=== PATIENT | male | born 1955 | race Caucasian/White ===

== ENCOUNTER → 2016-08-26 | Outpatient (CLI) | payer OTHER | END | disposition home or self-care (01) | LOC: RAD 15:26 | DX: R05 Cough (principal); I10 Essential (primary) hypertension; R06.2 Wheezing; R06.02 Shortness of breath; F17.200 Nicotine dependence, unspecified, uncomplicated ==

== ENCOUNTER 2018-06-10 16:29 | Inpatient (IN) | payer OTHER ==
[~2018-06-10] VITALS: Ht 172.7 cm; Wt 92.1 kg
--- NOTE | ~2018-06-10 | PR ---
[place], [place] PROGRESS NOTE NAME: SARAH CASILLAS UNIT #: [id number] ROOM: 507 DOCTOR: KIMMY STEVENSON MD,MINDY BIRTHDATE: [birth year] DOS: 06/15/2018 SUBJECTIVE: The patient has been improving. Gradual reduction of the oxygen requirement, respiratory symptoms were improving progressively using the BiPAP at nighttime. This morning, sitting on the bed without acute distress this morning of assessment. OBJECTIVE: VITAL SIGNS: Normal temperature, respiratory rate 20, heart rate of 89, blood pressure 105/59. The pulse oxygen saturation on 3 liters nasal cannula 98% saturation. HEAD, EYES, EARS, NOSE, AND THROAT: Examination shows head was atraumatic. Eyes nonicterus. NECK: Supple. CARDIOVASCULAR SYSTEM: S1, S2 is audible. LUNGS: Without any wheezing or crackles at this time. Breaths are noted moderately decreased. ABDOMEN: Soft, nontender. Bowel sounds present. EXTREMITIES: No acute edema. IMPRESSION: The patient with progressive resolution of the acute on chronic hypercapnia hypoxic respiratory failure, exacerbation of chronic obstructive pulmonary disease, history of nicotine use. PLAN OF TREATMENT: After tobacco use. The patient could be considered for home discharge on oral medications, tapering prednisone and bronchodilators. Outpatient appointment was suggested to this patient. MINDY ONELA MD CM:PNTRANS [id number] MINDY STEVENSON MD 06/15/18 1156 interface
--- NOTE | ~2018-06-10 | PR ---
[place], [place] PROGRESS NOTE NAME: SARAH CASILLAS UNIT #: [id number] ROOM: 507 DOCTOR: MINDY AUGUSTE MD BIRTHDATE: [birth year] DOS: 06/12/2018 PULMONARY PROGRESS NOTE SUBJECTIVE: The patient has been comfortably sitting on the chair during this morning of assessment in the ICU. Use of BiPAP and using oxygen supplementation intermittently. Denies symptoms of chest pain. Coughing has been noted with a small amount of sputum expectoration. Shortness of breath and wheezing were noted somewhat decreased. There were no symptoms of chest pain. Tightness in the chest was noted improving. There were no symptoms of edema or pain of the lower extremity. Denies symptoms of hematuria, nausea, vomiting, diarrhea, headache, or diplopia. Remaining systems were reviewed, they were noted all negative. OBJECTIVE: VITAL SIGNS: Which have been recorded showed the temperature recorded as normal, respiratory rate 18, heart rate 80, blood pressure of 102/61 to 89/48. Pulse oxygen saturation with the patient on 5 liters was 93% saturation. HEENT: No acute change. Head was atraumatic. NECK: Supple. CARDIOVASCULAR: S1 and S2 audible. LUNGS: The patient was noted with lovx-qg-jbmftrbg expiratory wheezing without any crackles. ABDOMEN: Soft and nontender. EXTREMITIES: The patient without any acute edema. VISIBLE SKIN: No lesions or rashes. CENTRAL NERVOUS SYSTEM: The patient's cranial nerves 2-12 were intact. MUSCULOSKELETAL: Noted without any acute deformities. IMPRESSION: 1. Acute on chronic hypercapnic and hypoxemic respiratory failure. 2. Metabolic alkalosis. 3. Chronic hypercarbia. 4. Acute exacerbation of chronic obstructive pulmonary disease. 5. Essential hypertension. PLAN OF THERAPY: Continue BiPAP with oxygen supplementation intermittently. Dose of corticosteroids will be continued the same with no changes. Solu-Medrol dose could be decreased tomorrow morning based on further improvement in respiratory status. The patient could be transferred from the intensive care unit to the telemetry floor. Continued abstinence of tobacco use was advised. [place], [place] PROGRESS NOTE NAME: SARAH CASILLAS UNIT #: [id number] ROOM: 507 DOCTOR: MINDY AUGUSTE MD BIRTHDATE: [birth year] MINDY ONEAL MD CM:AGUS [id number] MINDY STEVENSON MD 06/13/18 0014 interface
--- NOTE | ~2018-06-10 | PR ---
[place], [place] PROGRESS NOTE NAME: SARAH CASILLAS UNIT #: [id number] ROOM: 507 DOCTOR: MINDY AUGUSTE MD BIRTHDATE: [birth year] DOS: 06/13/2018 PULMONARY PROGRESS NOTE SUBJECTIVE: The patient has been transferred to the medical floor. He has been reporting reduction in respiratory symptom. The patient with coughing, wheezing and shortness of breath, and coughing has been noted with some sputum expectoration. There were no symptoms of chest pain, fever or chills reported. OBJECTIVE: VITAL SIGNS: Normal temperature, respiratory rate 20, heart rate 84, blood pressure 118/64, pulse oxygen saturation recorded as 97% saturation on 4 liters nasal cannula. HEENT: Examination shows head was atraumatic. Eyes nonicterus. NECK: Supple. CARDIOVASCULAR: S1, S2 is audible. LUNGS: Mild expiratory wheezing, moderate decreased breath sounds bilaterally. ABDOMEN: Soft, nontender. Bowel sounds present. EXTREMITIES: Without any acute edema. LABORATORY DATA: BMP: BUN 29, creatinine was normal. CBC of this morning, WBC count 13.2, hemoglobin 11.6, hematocrit 34.8, platelet count was normal. IMPRESSION: 1. The patient with progressive improvement was noted with acute exacerbation of chronic obstructive pulmonary disease with obstructive wheezing and improving the overall respiratory status. 2. Ynqxf-gz-dpzarmo hypercapnic hypoxic respiratory failure, responding to treatment with the BiPAP, bronchodilators, oxygen and steroids. PLAN OF MANAGEMENT: The steroid dose will be decreased. Solu-Medrol 40 mg b.i.d. Ambulation was encouraged. The patient may be considered for home discharge if he does well with the oxygen requirement decreased in the next 24 hours to the home settings. [place], [place] PROGRESS NOTE NAME: SARAH CASILLAS UNIT #: [id number] ROOM: 507 DOCTOR: MINDY AUGUSTE MD BIRTHDATE: [birth year] MINDY ONEAL MD CM:PNTRANS [id number] MINDY STEVENSON MD 06/27/18 0904 interface
--- NOTE | ~2018-06-10 | CON ---
[place], [place] REPORT OF CONSULTATION NAME: SARAH CASILLAS UNIT #: [id number] ROOM: [facility] DOCTOR: KIMMY STEVENSON MD,MINDY BIRTHDATE: [birth year] DOS: 06/11/2018 PULMONARY CONSULTATION, EVALUATION, AND MANAGEMENT CONSULTATION REQUESTED BY: Hospitalist. REASON FOR CONSULTATION: For assessment for the respiratory failure. HISTORY OF PRESENT ILLNESS: This is a 62-year-old white male patient with known history of chronic hypoxic respiratory failure, using oxygen supplementation of 2 liters nasal cannula with history of end-stage COPD. The patient stated he has been getting progressive increased shortness of breath for the last few days and increasing his oxygen supplementation 4 liters nasal cannula. The patient developed symptoms of coughing with excessive wheezing as well. The cough has been noted, urizr-xl-hwmndkql amount of sputum expectoration at times. The patient's symptoms had noted progressively worsening in spite of increased oxygen supplementation and was admitted to the hospital. The patient has not been noted any symptoms of chest pain or any hemoptysis. The patient came into the hospital and currently admitted in the Intensive Care Unit for the medical management of respiratory failure management. The patient's oxygen saturation noted as 72% at rest on room air and then started on supplemental oxygen. The oxygen saturation improved to 90% in the Emergency Room. Currently, the patient has been stating reduction in respiratory symptoms since hospitalization. The symptom resolution noted incomplete. He has been also started on the BiPAP. The BiPAP setting has been changed to improve the ventilatory status. PAST MEDICAL HISTORY: The patient has: 1. End-stage COPD. 2. Chronic hypoxic respiratory failure, 2 liters of oxygen use at home. 3. Essential hypertension. 4. Nicotine dependence. HOME MEDICATIONS: Listed as aspirin, Zestoretic, multivitamin, and nebulized bronchodilators and oxygen. CURRENT MEDICATIONS: Noted as use of Zestoretic, lisinopril, Solu-Medrol 40 mg q.8 hours, albuterol sulfate every 4 hours, nicotine replacement patch, Levaquin antibiotic, and other p.r.n. medications administration. DRUG ALLERGIES: THE PATIENT IS ALLERGIC TO SULFA DRUGS. SOCIAL HISTORY: The patient stated that he lives at home. He denies any history of alcohol or illicit drug use. Tobacco use, started teenager, smoked up to 2 packs of cigarettes per day. Currently, smoking 4-5 cigarettes per day. The patient is . FAMILY HISTORY: The patient's father history was unknown. Mother at the age of 72 from complications of COPD. REVIEW OF SYSTEMS: [place], [place] REPORT OF CONSULTATION NAME: SARAH CASILLAS UNIT #: [id number] ROOM: [facility] DOCTOR: MINDY AUGUSTE MD BIRTHDATE: [birth year] CONSTITUTIONAL SYMPTOMS: Fatigue and tiredness still reported without any symptoms of fever or chills. EYES: Denies burning, redness, or tenderness. EARS, NOSE, AND THROAT SYMPTOMS: No sore throat, hoarseness, otalgia, postnasal drainage, or epistaxis. CARDIOVASCULAR SYSTEM: Denies anginal pain, edema, or pain of lower extremity. GASTROINTESTINAL SYMPTOMS: No dysphagia, nausea, vomiting, diarrhea, abdominal pain, abnormal weight loss, or hematochezia. GENITOURINARY SYMPTOMS: Denies urinary incontinence, hematuria, flank pain, or suprapubic pain. MUSCULOSKELETAL SYMPTOMS: No acute joint pain, redness, or tenderness. SKIN: No lesions or rashes. CENTRAL NERVOUS SYSTEM: No dizziness, headache, diplopia, or syncopal episode. Remaining systems were reviewed and they were noted all negative. PHYSICAL EXAMINATION: GENERAL: This is a 62-year-old white male, currently noted comfortable. The patient is in Intensive Care Unit, using oxygen supplementation by nasal cannula. Height of 5 feet 8 inches, weight of 208 pounds, and BMI of 30.8. The patient was not noted any distress. VITAL SIGNS: Normal temperature, respiratory rate of 22, heart rate of 170, and blood pressure of 164/88 noted on admission and at noon the patient's blood pressure was noted as 113/90, heart rate of 93, normal sinus rhythm; respiratory rate of 20, and normal temperature. Pulse oxygen saturation was noted on the 4 liters nasal cannula is 89% saturation with a Venturi mask and on the BiPAP was 98% saturation. HEENT: Examination shows moderate obesity. Head was atraumatic. Eyes nonicterus. NECK: Supple. CARDIOVASCULAR SYSTEM: S1, S2 is audible. LUNGS: Noted with diffuse expiratory wheezing in the lungs bilaterally with decreased breath sounds. ABDOMEN: Soft, nontender. EXTREMITIES: The patient noted without any acute edema. MUSCULOSKELETAL: The patient noted without any obvious deformities. VISIBLE SKIN: No lesions or rashes. CENTRAL NERVOUS SYSTEM: Cranial nerves 2-12 intact. No focal deficit. LABORATORY DATA: Reviewed for the patient for this consultation. Lactic acid is 1.7 on admission. CBC on admission, WBC count is 7.2, hemoglobin is 12.8, and platelet count was normal on 06/10/2018. CMP of the patient on 06/10/2018 on admission glucose is 120, normal BUN and creatinine, and CO2 of 34. PT and PTT yesterday were normal. The arterial blood gas, pH of 7.29, pCO2 of 60, pO2 of 86 on 40% oxygen, BiPAP settings of 14/8. The arterial blood gas that was completed this morning on 40% of BiPAP setting of 18/10, pH of 7.37, pCO2 of 53, and pO2 of 80.4. Troponin 3 sets in the last 24 hours normal. CMP this morning, normal BUN and creatinine, sodium of 132, and CO2 of 33. The culture of the sputum was pending. Gram stain this morning, moderate epithelial cells, moderate white blood cells, many gram-positive cocci in chains and clusters with few gram-negative bacilli. [place], [place] REPORT OF CONSULTATION NAME: SARAH CASILLAS UNIT #: [id number] ROOM: [facility] DOCTOR[facility] [birth year] IMAGING DATA: One view chest x-ray that was done on admission reviewed from the PACS images independently and review shows evidence of severe COPD changes and hyperinflation. It does not show any evidence of acute pulmonary infiltration with 1 view chest x-ray of 06/10/2018. IMPRESSION: 1. The patient who has been currently admitted to the hospital noted with end-stage chronic obstructive pulmonary disease with acute bronchitis. Active wheezing noted. The patient was noted also with acute on chronic hypercapnic hypoxic respiratory failure secondary to the above. 2. Metabolic alkalosis likely secondary to chronic hypercarbia, which has been known with end-stage chronic obstructive pulmonary disease. 3. Chronic nicotine dependence as well. 4. History of essential hypertension. 5. Moderate obesity as well. PLAN OF MANAGEMENT: The patient will be continued on current dose of Solu-Medrol 40 mg q.8 hours should suffice, albuterol sulfate for treatment of exacerbation of COPD management. Continue the BiPAP intermittently during the day today and continue at nighttime. Continue current antibiotic. Monitor cultures of the sputum. DVT prophylaxis. Nicotine replacement patches. Counseling about nicotine cessation was done at the bedside. Other treatment changes will be made based on progression of his illness. Thanks for allowing me to participate in the care of this patient. MINDY ONEAL MD CM:CONSTR:REPORT OF CONSULTATION 1633 06/12/18 0314 interface
--- NOTE | ~2018-06-10 | PR ---
[place], [place] PROGRESS NOTE NAME: SARAH CASILLAS UNIT #: [id number] ROOM: 507 DOCTOR: KIMMY STEVENSON MD,MINDY BIRTHDATE: [birth year] DOS: 06/14/2018 SUBJECTIVE: Comfortably resting on the bed, still noted symptoms of shortness of breath with exertion. Coughing with wheezing were resolving. There were no symptoms of chest pain. OBJECTIVE: VITAL SIGNS: This morning, normal temperature, respiratory rate 21, heart rate 72, blood pressure 105/55. Pulse oxygen saturation on 2 liters nasal cannula 94% saturation. HEENT: Head was atraumatic. Eyes nonicterus. NECK: Supple. CARDIOVASCULAR: S1, S2 is audible. LUNGS: Decreased breath sounds, scattered expiratory wheezing, no crackles. ABDOMEN: Soft and nontender. Bowel sounds present. EXTREMITIES: No acute change. IMPRESSION: Resolving acute exacerbation of chronic obstructive pulmonary disease with acute tracheobronchitis, resolving acute on chronic hypercapnic hypoxic respiratory failure. PLAN OF MANAGEMENT: Decrease Solu-Medrol 40 mg daily. Ambulation was encouraged with oxygen supplementation to maintain a pulse ox saturation 92% or greater. Additional treatment changes will be made based on the progression of the illness. MINDY ONEAL MD CM:PNTRANS [id number] MINDY STEVENSON MD 06/27/18 0906 interface
--- NOTE | ~2018-06-10 | EKG ---
[place], [place] ELECTROCARDIOGRAM REPORT NAME: SARAH CASILLAS UNIT #: [id number] ROOM: [facility] DOCTOR: KAY DRAFT REPORT BIRTHDATE: [birth year] [facility] Test Date: 2018-06-10 Test Time: 16:36:16 Pat Name: SARAH CASILLAS Department: Room: [facility] Gender: M [employer] Worker: : 1955 Requested By: MICH ZEPEDA Order Number: [id number] Reading MD: Rao Hunt MD Measurements Intervals Organ Rate: 116 P: 76 DC: 183 QRS: 65 QRSD: 81 T: 59 QT: 321 QTc: 446 Interpretive Statements Sinus tachycardia Right atrial enlargement Compared to ECG 04/28/2018 12:41:55 Atrial abnormality now present Sinus rhythm no longer present Left-axis deviation no longer present Electronically Signed On 06-10-2018 16:35:38 PST by Rao Hunt MD CM:EKGRPT:ELECTROCARDIOGRAM REPORT 1635 MICH WADE DRAFT REPORT MICH ZEPEDA DO
[~2018-06-10 16:29] MED LIST: ASPIRIN CHEWABL81 MG PO; LEVAQUIN500 M2 PO; MUCINEX ER600 MG PO; PREDNISONE10 MG PO; ZESTORETIC 20-1 EACH PO
[2018-06-10 16:34] VITALS: BP 164/88
[2018-06-10] MEDS ORDERED: MULTIVITAMINS1 EAC5 PO (16:42)
[2018-06-10 17:09] LABS: BASO # 0.1 10*3/uL (0.0-0.1); BASO % 1.1 % (0.0-1.0); EOS # 0.7 10*3/uL (0.0-0.4); EOS % 9.5 % (1.0-4.0); HEMATOCRIT 40.4 % (42.0-52.0); HEMOGLOBIN 12.8 g/dl (14.0-18.0); LYMPH # 1.5 10*3/uL (1.3-4.4); MEAN CELL VOLUME 97.1 fl (80.0-94.0); MEAN CORPUSCULAR HGB 30.8 pg (27.0-31.0); MEAN CORPUSCULAR HGB CONC 31.7 g/dl (33.0-37.0); MEAN PLATELET VOLUME 9.5 fl (9.6-12.3); MONO # 0.6 10*3/uL (0.1-1.0); MONO % 7.6 % (3.0-9.0); NEUT # 4.4 10*3/uL (2.3-7.9); NEUT % 60.4 % (47.0-73.0); PLATELET COUNT AUTOMATED 309 10*3/uL (130-400); RED BLOOD COUNT 4.16 10*6/uL (4.50-5.90); RED CELL DISTRI WIDTH 12.9 % (0-14.5); WHITE BLOOD COUNT 7.2 10*3/uL (4.8-10.8)
[2018-06-10 17:19] LABS: ALBUMIN 3.5 gm/dl (3.1-4.5); ALKALINE PHOSPHATASE 76 U/L (45-117); BUN 13 mg/dl (7-24); CHLORIDE 95 mmol/L (98-107); CREATININE 0.87 mg/dL (0.70-1.30); LIPASE 74 U/L (73-393); POTASSIUM 4.5 mmol/L (3.5-5.1); SGOT/AST 19 IU/L (3-35); SGPT/ALT 22 U/L (12-78); SODIUM 136 mmol/L (136-145); TOTAL PROTEIN 7.4 gm/dL (6.4-8.2)
[2018-06-10 17:20] LABS: TROPONIN I < 0.015 ng/ml (<0.045)
[2018-06-10 17:23] LABS: ACT PARTIAL THROMBO TIME 23.6 SECONDS (20.8-31.5)
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
[2018-06-10 17:48] VITALS: BP 138/79
[2018-06-10 18:40] VITALS: BP 102/60
--- NOTE | 2018-06-10 18:40 | NUR ---
A 62, admitted to ICCU, under the services of ALDAIR Burgos DO with a diagnosis of RESP. FAILURE. Chief complaint is SOB SINCE NOON TODAY. Patient arrived via stretcher from ER. Monitor applied. Initial assessment completed. Vital signs taken and recorded. ALDAIR BURGOS DO notified of admission to the unit. Orders received. See assessment for past medical history, medications and allergies. Patient and/or family oriented to unit. [facility] ICCU visitation policy reviewed. Clothing/patient valuable form completed. CAMPA
[2018-06-10 19:34] LABS: ABG HCO3 32.3 mmol/l (22-26); ABG O2 SATURATION 97.1 % (95-97); ARTERIAL BLOOD GAS PCO2 68.3 mmHg (35-45); ARTERIAL BLOOD GAS PH 7.293 (7.35-7.45); ARTERIAL BLOOD GAS PO2 86.7 mmHg (80-90)
--- NOTE | 2018-06-10 19:56 | NUR ---
24 HR chart check completed.
--- NOTE | 2018-06-10 19:56 | NUR ---
24 HR chart check completed.
--- NOTE | 2018-06-10 21:43 | NUR ---
PT SOMEWHAT ANXIOUS. REASSURED AND CALMED DOWN. NOW IS RESTING ON BIPAP.
[2018-06-11 05:51] LABS: ALKALINE PHOSPHATASE 66 U/L (45-117); BUN 18 mg/dl (7-24); CHLORIDE 96 mmol/L (98-107); CREATININE 0.95 mg/dL (0.70-1.30); PHOSPHOROUS 3.3 mg/dL (2.5-4.9); SGOT/AST 18 IU/L (3-35); SGPT/ALT 20 U/L (12-78); SODIUM 133 mmol/L (136-145); TOTAL PROTEIN 6.6 gm/dL (6.4-8.2)
[2018-06-11 06:11] LABS: BASO % 0.2 % (0.0-1.0); HEMATOCRIT 37.4 % (42.0-52.0); HEMOGLOBIN 12.1 g/dl (14.0-18.0); LYMPH # 0.5 10*3/uL (1.3-4.4); LYMPH % 10.9 % (27.0-41.0); MEAN CELL VOLUME 96.9 fl (80.0-94.0); MEAN CORPUSCULAR HGB 31.3 pg (27.0-31.0); MEAN CORPUSCULAR HGB CONC 32.4 g/dl (33.0-37.0); MEAN PLATELET VOLUME 9.7 fl (9.6-12.3); MONO # 0.1 10*3/uL (0.1-1.0); MONO % 1.4 % (3.0-9.0); NEUT # 3.8 10*3/uL (2.3-7.9); NEUT % 86.8 % (47.0-73.0); PLATELET COUNT AUTOMATED 263 10*3/uL (130-400); RED BLOOD COUNT 3.86 10*6/uL (4.50-5.90); WHITE BLOOD COUNT 4.4 10*3/uL (4.8-10.8)
[2018-06-11 07:44] LABS: ABG BASE EXCESS 5.1 mmol/L (-2.0-2.0); ABG O2 SATURATION 96.1 % (95-97); ARTERIAL BLOOD GAS PCO2 53.6 mmHg (35-45); ARTERIAL BLOOD GAS PH 7.379 (7.35-7.45); ARTERIAL BLOOD GAS PO2 80.4 mmHg (80-90)
[2018-06-11 08:00] VITALS: BP 124/62
[2018-06-11 12:00] VITALS: BP 113/90
[2018-06-11 16:00] VITALS: BP 95/27
[2018-06-11 20:00] VITALS: BP 102/72
--- NOTE | 2018-06-11 20:23 | NUR ---
1946 RESTING IN BED WATCHING TV. ALERT AND PLEASANT. PULSE OX 96% ON HIGH FLOW 02 VIA NC. IF FLUIDS CONT. NO DISTRESS NOTED. NO C/O'S VOICED.
--- NOTE | 2018-06-11 22:16 | NUR ---
PT SLEEPING. HIGH FLOW O2 INTACT VIA NC. PULSE OX OX IS 84%. RESPIRATORY THERAPY HERE TO PLACE PT ON BIPAP.
[2018-06-12] VITALS (7 sets, daily range): BP systolic 89–107; BP diastolic 38–70
--- NOTE | 2018-06-12 00:19 | NUR ---
RESTING IN BED WITH EYES CLOSED. APPEARS TO BE SLEEPING. BIPAP INTACT. PULSE OX 98%,.
--- NOTE | 2018-06-12 02:30 | NUR ---
0200 BIPAP OFF PER PT REQUEST. STATES " I CAN'T TAKE IT ANYMORE." HIGHFLOW 02 VIA [employer] RE-[employer].
[2018-06-12 05:29] LABS: HEMATOCRIT 34.8 % (42.0-52.0); HEMOGLOBIN 11.3 g/dl (14.0-18.0); MEAN CELL VOLUME 95.9 fl (80.0-94.0); MEAN CORPUSCULAR HGB 31.1 pg (27.0-31.0); MEAN CORPUSCULAR HGB CONC 32.5 g/dl (33.0-37.0); MEAN PLATELET VOLUME 9.8 fl (9.6-12.3); PLATELET COUNT AUTOMATED 250 10*3/uL (130-400); RED BLOOD COUNT 3.63 10*6/uL (4.50-5.90); RED CELL DISTRI WIDTH 13.3 % (0-14.5); WHITE BLOOD COUNT 13.6 10*3/uL (4.8-10.8)
[2018-06-12 05:47] LABS: BUN 26 mg/dl (7-24); CHLORIDE 101 mmol/L (98-107); CREATININE 0.92 mg/dL (0.70-1.30); POTASSIUM 4.9 mmol/L (3.5-5.1); SODIUM 138 mmol/L (136-145)
--- NOTE | 2018-06-12 06:15 | NUR ---
RESTING IN BED WITH EYES CLOSED. REMAINS SLEEPING WIHTOUT DISTRESS. RESPIRATIONS EASY. PULSE OX 100% ON HIGH FLOW 02. IV FLUIDS CONT. CONDITION GUARDED.
[2018-06-12 06:32] LABS: PLATELET SUFFICIENCY NORMAL (NORMAL); TOTAL CELLS COUNTED 100 #CELLS
--- NOTE | 2018-06-12 10:39 | NUR ---
IVF'S DC'D PER DR FENG.
--- NOTE | 2018-06-12 11:43 | NUR ---
DR RODRIGUEZ MADE AWARE OF PT'S BP OF 89/48 AND THAT I HELD ZESTRIL TODAY.
--- NOTE | 2018-06-12 14:35 | NUR ---
PHYSICAL THERAPY PT EVAL COMPLETED IN ICCU TODAY; FULL EVALUATION TO FOLLOW. RECOMMEND PT WHILE HERE TO ADDRESS DECREASED STRENGTH, ENDURANCE, BALANCE AND THUS FUNCTIONAL MOBILITY STATUS. PT EVAL IS MODERATE COMPLEXITY BASED ON CHART REVIEW, TEST RESULTS AND EVALUATION: [id number]. D/C REC: RETURN HOME WITH HOME PT SERVICES. THANK YOU FOR REFERRAL JEFRFY ALONSO PT
--- NOTE | 2018-06-12 19:30 | NUR ---
PATIENT AWAKE IN BED AT THIS TIME. BREATHING TX COMPLETE. REPLACED TREATMENT MASK WITH NASAL CANNULA AT 4L. PATIENT DENIES ANY SOB, PAIN, OR OTHER GENERALIZED DISCOMFORT. WILL MONITOR. CALL LIGHT LEFT IN REACH.
--- NOTE | 2018-06-12 23:50 | NUR ---
PT PLACED ON BIPAP
[2018-06-13] VITALS: BP 114/65
--- NOTE | 2018-06-13 00:58 | NUR ---
CONTINUOUS PULSE OX APPLIED TO MONITOR WHILE BIPAP IN USE. POX 98% AT PRESENT TIME. WILL MONITOR. CALL LIGHT LEFT IN REACH.
--- NOTE | 2018-06-13 02:44 | NUR ---
PT OFF BIPAP
[2018-06-13 06:26] LABS: HEMATOCRIT 34.8 % (42.0-52.0); HEMOGLOBIN 11.6 g/dl (14.0-18.0); MEAN CELL VOLUME 95.1 fl (80.0-94.0); MEAN CORPUSCULAR HGB 31.7 pg (27.0-31.0); MEAN CORPUSCULAR HGB CONC 33.3 g/dl (33.0-37.0); MEAN PLATELET VOLUME 9.3 fl (9.6-12.3); PLATELET COUNT AUTOMATED 248 10*3/uL (130-400); RED BLOOD COUNT 3.66 10*6/uL (4.50-5.90); RED CELL DISTRI WIDTH 13.3 % (0-14.5); WHITE BLOOD COUNT 13.2 10*3/uL (4.8-10.8)
[2018-06-13 06:41] LABS: BUN 29 mg/dl (7-24); CHLORIDE 102 mmol/L (98-107); CREATININE 0.92 mg/dL (0.70-1.30); POTASSIUM 4.8 mmol/L (3.5-5.1); SODIUM 140 mmol/L (136-145)
[2018-06-13 06:47] LABS: PLATELET SUFFICIENCY NORMAL (NORMAL); TOTAL CELLS COUNTED 100 #CELLS
--- NOTE | 2018-06-13 07:47 | NUR ---
VITALS STABLE. A&OX3, SEAMUS, EQUAL VENDING STAND SUPERVISOR, HEART SOUNDS NORMAL, LUNGS DIMINSHED, NON-PRODUCTIVE COUGH, BSX4, ABD NONTENDER, NONDISTENDED, SKIN PINK, WARM AND DRY, PITTING EDEMA +1 BILATERAL LOWER EXTREMETIES, POSITIVE PEDIAL PULSES, NO COMPLAINTS OF PAIN AT THIS TIME. WILL CONTINUE TO ASSESS. [facility]
[2018-06-13 08:00] VITALS: BP 118/64
--- NOTE | 2018-06-13 09:17 | NUR ---
PHYSICAL THERAPY Patient presented to therapy in supine with 4 liters of spO2 and no assistive device with report of feeling much better and no complaints. Patient agrees to therapy session. Patient was identified by name and . Patient performed supine to sitting at EOB transfer with SBA. Patient transferred STS with SBA. Patient ambulated around entire 5 th floor with no assistive device and Close Supervision for 375' x 1 with 4 liters of spO2. Patient sat on EOB and performed bilateral LE ther ex x 15 reps each in all planes of movement in order to improve patient's functional mobility. Patient was left in sitting at EOB with 4 liters of spO2 attached to wall outlet, call light within reach, and tray table within reach. Patient was 1:1 with this MARINE EQUIPMENT ENGINEER for 20 minutes total. Patient is recommended for home with PT HH upon discharge. POPPY SOTO MARINE EQUIPMENT ENGINEER
--- NOTE | 2018-06-13 10:00 | NUR ---
TYLENOL EFFECTIVE, PT STATES PAIN IS "0 OUT OF 10" ON PAIN SCALE. WILL CONTINUE TO MONITOR. ROSARIO PACHECOCC
--- NOTE | 2018-06-13 11:08 | NUR ---
PATIENT IS VERY TALKATIVE. DISPLAYS NO S/S OF DISTRESS, CALL LIGHT WITHIN REACH. DENIES ANY DISCOMFORTS. RESP EASY. CAN SAY SOME INAPPROPRIATE COMMENTS AT TIMES. EASILY REDIRECTED.
--- NOTE | 2018-06-13 11:50 | NUR ---
Box Sealing Machine Operator in to talk to patient. Patient states lives at HOME with AONE. There are 3 steps in the home. Physician: MARIEL OLMSTEAD Pharmacy: [facility] Home health services: NONE Patient's level of ADLs: INDEPENDENT Patient has working utilities: YES DME: NONE Follow-up physician's appointment after d/c: WILL BE MADE BY HOSPITALIST NURSE DIRECTOR Does patient want to access PORTAL?: NO Discharge plan PT STATES HE LIVES HOME ALONE AND IS INDEPENDENT IN CARE. DENIES ANY HOME NEEDS ON DISCHARGE. WILL CONTINUE TO FOLLOW.. SPENCER VIGIL
[2018-06-13 12:00] VITALS: BP 120/62
--- NOTE | 2018-06-13 12:00 | NUR ---
VITALS STABLE. A&OX3, SEAMUS, EQUAL COAL SCREENER, HEART SOUNDS NORMAL, LUNGS DIMINISHED BILATERALLY, NON-PRODUCTIVE COUGH, BSX4, NONTENDER, SLIGHTLY DISTENDED, SKIN PINK, WARM AND DRY, CAP REFILL <3 SECONDS, PITTING EDMEA +1 BILATERAL LOWER LEGS, TRACE EDEMA IN FEET BILATERALLY, POSITIVE PEDIAL PULSES. NO COMPLAINTS OF PAIN AT THIS TIME. WILL CONTINUE TO ASSESS. ROSARIO PACHECOCC
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
--- NOTE | 2018-06-13 13:55 | NUR ---
PHYSICAL THERAPY Patient presented to therapy in supine on 4 liters of spO2 and no other complaints. Patient agrees to therapy session. Patient was identified by name and . Patient transferred supine to sitting at EOB SBA. Patient transferred STS with SBA. Patient ambulated with no assistive device and 4 liters of spO2 for 375' x 1 around entire 5th floor.
--- NOTE | 2018-06-13 15:12 | NUR ---
Occupational Therapy evaluation offered this date however patient reports he has no need. Patient is able to ambulate in and out of his room on 3 LPM O2. He performs his own self care including bathing, dressing, grooming and toileting at an independent level. Patient reports no pain. Patient educated in pacing and that OT could educate in energy conservation/work simplification techniques. Patient is not interested at this time. Discharge OT referral per patient's request. Isela Ulrich OTR/L
[2018-06-13 16:00] VITALS: BP 90/47
[2018-06-13 20:00] VITALS: BP 99/53
--- NOTE | 2018-06-13 23:23 | NUR ---
PATIENT REFUSING BIPAP
--- NOTE | 2018-06-13 23:49 | NUR ---
PT REFUSING TO WEAR BIPAP AT THIS TIME.
[2018-06-14] VITALS: BP 103/42
--- NOTE | 2018-06-14 04:05 | NUR ---
PATIENT ASLEEP IN BED AT THIS TIME. O2 IN USE VIA 3L NC PATIENT REFUSED TO WEAR BIPAP AFTER MULTIPLE ATTEMPTS BY RESPIRATORY THERAPY/NURSING TO CONVINCE PT TO WEAR IT. RESPIRATIONS EASY. NO S/S OF DISTRESS NOTED. WILL MONITOR. CALL LIGHT LEFT IN REACH.
[2018-06-14 08:00] VITALS: BP 105/55
[2018-06-14 08:11] LABS: BASO % 0.1 % (0.0-1.0); HEMATOCRIT 37.7 % (42.0-52.0); HEMOGLOBIN 12.4 g/dl (14.0-18.0); LYMPH % 9.2 % (27.0-41.0); MEAN CORPUSCULAR HGB 31.2 pg (27.0-31.0); MEAN CORPUSCULAR HGB CONC 32.9 g/dl (33.0-37.0); MEAN PLATELET VOLUME 9.5 fl (9.6-12.3); MONO # 0.4 10*3/uL (0.1-1.0); MONO % 3.1 % (3.0-9.0); NEUT # 9.7 10*3/uL (2.3-7.9); NEUT % 86.7 % (47.0-73.0); PLATELET COUNT AUTOMATED 248 10*3/uL (130-400); RED BLOOD COUNT 3.97 10*6/uL (4.50-5.90); RED CELL DISTRI WIDTH 13.5 % (0-14.5); WHITE BLOOD COUNT 11.2 10*3/uL (4.8-10.8)
[2018-06-14 08:35] LABS: BUN 28 mg/dl (7-24); CHLORIDE 99 mmol/L (98-107); CREATININE 0.86 mg/dL (0.70-1.30); POTASSIUM 4.3 mmol/L (3.5-5.1); SODIUM 135 mmol/L (136-145)
[2018-06-14 12:00] VITALS: BP 104/61
--- NOTE | 2018-06-14 14:58 | NUR ---
PHYSICAL THERAPY Patient presented to therapy in supine with 2 liters of spO2 VIA NASAL CANULA. Patient reports feeling better overall and having no pain anywhere. Patient agrees to therapy session. Patient was identified by name and . Patient performed all transfers with MOD I. Patient ambulated 500' x 1 with 2 liters of spO2 and Close Supervision. Patient had no LOB or significant SOB during gait. Patient transferred back to supine in bed with MOD I. Patient was left in supine in bed with head of bed elevated, call ight within reach, and tray table near patient. Patient connected to wall outlet with 2 liters of spO2 via nasal canula. Patient was 1:1 with this SHADER AND TONER for 15 minutes total. POPPY SOTO SHADER [employer] TONER
[2018-06-14 16:00] VITALS: BP 96/54
[2018-06-14 20:00] VITALS: BP 113/65; BP 90/44
[2018-06-15] VITALS: BP 105/59
[2018-06-15 07:15] LABS: BASO % 0.3 % (0.0-1.0); EOS # 0.2 10*3/uL (0.0-0.4); EOS % 1.9 % (1.0-4.0); HEMATOCRIT 38.4 % (42.0-52.0); HEMOGLOBIN 12.2 g/dl (14.0-18.0); LYMPH # 3.6 10*3/uL (1.3-4.4); LYMPH % 36.2 % (27.0-41.0); MEAN CELL VOLUME 96.5 fl (80.0-94.0); MEAN CORPUSCULAR HGB 30.7 pg (27.0-31.0); MEAN CORPUSCULAR HGB CONC 31.8 g/dl (33.0-37.0); MEAN PLATELET VOLUME 9.4 fl (9.6-12.3); MONO # 0.6 10*3/uL (0.1-1.0); MONO % 6.4 % (3.0-9.0); NEUT # 5.3 10*3/uL (2.3-7.9); NEUT % 53.3 % (47.0-73.0); PLATELET COUNT AUTOMATED 259 10*3/uL (130-400); RED BLOOD COUNT 3.98 10*6/uL (4.50-5.90); RED CELL DISTRI WIDTH 13.6 % (0-14.5); WHITE BLOOD COUNT 9.9 10*3/uL (4.8-10.8)
[2018-06-15 07:46] LABS: BUN 29 mg/dl (7-24); CHLORIDE 99 mmol/L (98-107); CREATININE 1.02 mg/dL (0.70-1.30); POTASSIUM 4.4 mmol/L (3.5-5.1); SODIUM 136 mmol/L (136-145)
--- NOTE | 2018-06-15 11:03 | NUR ---
PT DID NOT WANT DISCHARGE PHOTOS OF HIS SCROTUM. HE STATED "I DON'T REALLY FIND IT NECESSARY". PATIENTS MODESTY WAS PRESERVED PER HIS REQUEST.
[2018-06-15 12:00] VITALS: BP 115/69
[2018-06-15] MEDS ORDERED: MUCINEX1200 M1 PO (13:26)
[2018-06-15] MEDS ORDERED: NICODERM CQ1 EAC2 T (13:26)
[2018-06-15] MEDS ORDERED: LEVAQUIN750 M1 PO (13:26)
[2018-06-15] MEDS ORDERED: PREDNISONE10 MG PO (13:26)
--- NOTE | 2018-06-15 13:31 | NUR ---
PT CONTINUES TO DENY HOME NEEDS ON DISCHARGE.
--- NOTE | 2018-06-15 14:26 | NUR ---
RT, Stephanie Antonio stated she called [facility] and [facility] will be bringing an oxygen tank in for this patient to transport home with.
--- NOTE | 2018-06-15 14:47 | NUR ---
AWAITING NANI TO BRING O2 TANK DUE TO PATIENT HAD ARRIVED BY AMBULANCE AND DOES NOT HAVE ANYONE TO COME GET HIM AND WILL BE TAKING A CAB HOME.
--- NOTE | 2018-06-15 15:40 | NUR ---
PT DISCHARGED AT THIS TIME AFTER NANI BROUGHT HIM A PORTABLE OXYGEN TANK. VERBALIZED UNDERSTANDING OF DISCHARGE INSTRUCTIONS. IV REMOVED AND PRESSURE DRESSING APPLIED.
--- NOTE | 2018-06-16 07:55 | NUR ---
PHYSICAL THERAPY CO-SIGN I approve of the Phyical Therapy notes written above. JERSEY ROWE PT
[2018-07-31] MEDS ORDERED: NICODERM CQ1 EACH T (08:49)
[2018-08-03] MEDS ORDERED: MUCINEX ER600 MG PO (11:17)
[2018-08-03] MEDS ORDERED: ZITHROMAX250 MG PO (11:17)
[2018-08-03] MEDS ORDERED: PREDNISONE10 MG PO (11:17)
== END 2018-06-15 15:40 | disposition home or self-care (01) | DRG 871 ==
LOC: ED 16:29 → 5E 17:36 → EDHOLD 17:36 → ICCU 17:48 → 5E 06-12 17:36
PROVIDERS: Emergency Medicine; Internal Medicine; Internal Medicine Critical Care Medicine; Internal Medicine Nephrology; ADMIT Internal Medicine
PROC: 5A09357 Assistance with Respiratory Ventilation, Less than 24 Consecutive Hours, Continuous Positive Airway Pressure (ICD-10-PCS; principal; 2018-06-10)
PROC: 5A09357 Assistance with Respiratory Ventilation, Less than 24 Consecutive Hours, Continuous Positive Airway Pressure (ICD-10-PCS; 2018-06-11)
DX: A41.9 Sepsis, unspecified organism (principal); J18.9 Pneumonia, unspecified organism; J96.21 Acute and chronic respiratory failure with hypoxia; J96.22 Acute and chronic respiratory failure with hypercapnia; J44.1 Chronic obstructive pulmonary disease with (acute) exacerbation; J44.0 Chronic obstructive pulmonary disease with (acute) lower respiratory infection; E87.3 Alkalosis; E83.41 Hypermagnesemia; E87.8 Other disorders of electrolyte and fluid balance, not elsewhere classified; I10 Essential (primary) hypertension; F17.200 Nicotine dependence, unspecified, uncomplicated; R65.20 Severe sepsis without septic shock; D53.8 Other specified nutritional anemias; J20.9 Acute bronchitis, unspecified; E66.01 Morbid (severe) obesity due to excess calories; Z71.6 Tobacco abuse counseling; Z99.81 Dependence on supplemental oxygen; Z83.6 Family history of other diseases of the respiratory system; Z88.2 Allergy status to sulfonamides; Z68.30 Body mass index [BMI] 30.0-30.9, adult

== ENCOUNTER 2018-07-01 10:54 | Emergency (ER) | payer OTHER ==
[~2018-07-01] VITALS: Ht 172.7 cm; Wt 97.1 kg
--- NOTE | ~2018-07-01 | EKG ---
[place], [place] ELECTROCARDIOGRAM REPORT NAME: SARAH CASILLAS UNIT #: [id number] ROOM: DOCTOR: EPIPHANY DRAFT REPORT BIRTHDATE: [birth year] [facility] Test Date: 2018-07-01 Test Time: 11:01:39 Pat Name: SARAH CASILLAS Department: Room: Gender: Manager Drug Safety: Rosalinda Padron : 1955 Requested By: YANG LEIJA Order Number: [id number] Reading MD: Rao Hunt MD Measurements Intervals [place] Rate: 96 P: 79 GA: 160 QRS: 70 QRSD: 78 T: 53 QT: 338 QTc: 428 Interpretive Statements Sinus rhythm LAE, consider biatrial enlargement Abnormal R-wave progression, late transition Compared to ECG 06/10/2018 16:36:16 Sinus tachycardia no longer present Electronically Signed On 07-01-2018 19:36:30 PST by Rao Hunt MD CM:EKGRPT:ELECTROCARDIOGRAM REPORT [id number] YANG VILLANUEVA DRAFT REPORT YANG LEIJA M.D.
[~2018-07-01 10:54] MED LIST changes: +LEVAQUIN750 M1 PO; +MUCINEX1200 M1 PO; +MULTIVITAMINS1 EAC5 PO; +NICODERM CQ1 EAC2 T
[2018-07-01 11:13] LABS: BASO # 0.1 10*3/uL (0.0-0.1); BASO % 0.7 % (0.0-1.0); EOS # 0.6 10*3/uL (0.0-0.4); EOS % 8.8 % (1.0-4.0); HEMOGLOBIN 12.4 g/dl (14.0-18.0); LYMPH # 1.1 10*3/uL (1.3-4.4); LYMPH % 15.8 % (27.0-41.0); MEAN CELL VOLUME 96.9 fl (80.0-94.0); MEAN CORPUSCULAR HGB 31.6 pg (27.0-31.0); MEAN CORPUSCULAR HGB CONC 32.6 g/dl (33.0-37.0); MONO # 0.5 10*3/uL (0.1-1.0); MONO % 7.6 % (3.0-9.0); NEUT # 4.7 10*3/uL (2.3-7.9); NEUT % 66.8 % (47.0-73.0); PLATELET COUNT AUTOMATED 210 10*3/uL (130-400); RED BLOOD COUNT 3.92 10*6/uL (4.50-5.90); RED CELL DISTRI WIDTH 15.2 % (0-14.5)
[2018-07-01 11:30] LABS: ALBUMIN 3.4 gm/dl (3.1-4.5); ALKALINE PHOSPHATASE 62 U/L (45-117); BUN 25 mg/dl (7-24); CHLORIDE 96 mmol/L (98-107); CREATININE 0.86 mg/dL (0.70-1.30); POTASSIUM 4.2 mmol/L (3.5-5.1); SGOT/AST 19 IU/L (3-35); SGPT/ALT 41 U/L (12-78); SODIUM 135 mmol/L (136-145); TOTAL PROTEIN 6.9 gm/dL (6.4-8.2)
[2018-07-01 11:39] LABS: TROPONIN I < 0.015 ng/ml (<0.045)
[2018-07-01] MEDS ORDERED: PREDNISONE20 M1 PO (14:46)
[2018-07-01] MEDS ORDERED: VIBRAMYCIN100 MG PO (14:46)
[2018-07-31] MEDS ORDERED: NICODERM CQ1 EACH T (08:49)
[2018-08-03] MEDS ORDERED: MUCINEX ER600 MG PO (11:17)
[2018-08-03] MEDS ORDERED: ZITHROMAX250 MG PO (11:17)
[2018-08-03] MEDS ORDERED: PREDNISONE10 MG PO (11:17)
== END 2018-07-01 14:44 | disposition home or self-care (01) ==
LOC: ED 10:54
PROVIDERS: Emergency Medicine
DX: J44.1 Chronic obstructive pulmonary disease with (acute) exacerbation (principal); I11.0 Hypertensive heart disease with heart failure; I50.9 Heart failure, unspecified; F17.210 Nicotine dependence, cigarettes, uncomplicated; Z88.2 Allergy status to sulfonamides; Z79.899 Other long term (current) drug therapy; Z79.82 Long term (current) use of aspirin

== ENCOUNTER 2024-04-02 01:28 | Inpatient (IN) | payer MEDICARE, OTHER ==
[2024-04-02] VITALS (10 sets, daily range): BP systolic 106–149; BP diastolic 42–75
[~2024-04-02] VITALS: Ht 170.1 cm; Wt 140.4 kg
[~2024-04-02 01:28] MED LIST changes: +NICODERM CQ1 EACH T; +PREDNISONE20 M1 PO; +VIBRAMYCIN100 MG PO; +ZITHROMAX250 MG PO
[2024-04-02] MEDS ORDERED: Albuterol Sulf/Ipratropium 3 ML VIAL NEB ONE (01:45)
[2024-04-02] MEDS ORDERED: methylPREDNISolone sod succ 125 MG VIAL IV ONE (01:45)
[2024-04-02] MEDS ORDERED: FLOMAX0.4 MG PO (02:02)
[2024-04-02] MEDS ORDERED: LASIX40 MG PO (02:02)
[2024-04-02] MEDS ORDERED: VITAMIN D350 MC2 PO (02:03)
[2024-04-02] MEDS ORDERED: BREZTRI AEROS10.7 GM INH (02:04)
[2024-04-02 02:11] LABS: BASO % 0.4 % (0.0-1.0); EOS # 0.2 10*3/uL (0.0-0.4); EOS % 1.6 % (1.0-4.0); HEMATOCRIT 28.6 % (42.0-52.0); MEAN CELL VOLUME 97.3 fl (80.0-94.0); MEAN CORPUSCULAR HGB 28.2 pg (27.0-31.0); MONO # 0.5 10*3/uL (0.1-1.0); MONO % 5.6 % (3.0-9.0); NEUT # 7.5 10*3/uL (2.3-7.9); NEUT % 81.6 % (47.0-73.0); PLATELET COUNT AUTOMATED 247 10*3/uL (130-400); RED BLOOD COUNT 2.94 10*6/uL (4.50-5.90); RED CELL DISTRI WIDTH 14.6 % (0-14.5); WHITE BLOOD COUNT 9.2 10*3/uL (4.8-10.8)
[2024-04-02 02:30] LABS: BUN 35 mg/dl (9-23); CHLORIDE 96 mmol/L (98-107); POTASSIUM 4.4 mmol/L (3.4-5.1)
[2024-04-02] MEDS ORDERED: AZITHROMYCIN 250 ML IV ONE (04:00)
[2024-04-02] MEDS ORDERED: Ceftriaxone Sodium 1 GM/10 ML SYR IV ONE (04:00)
[2024-04-02] MEDS ORDERED: Ondansetron Hydrochloride 4 MG/2 ML VIAL IV PRN (05:50)
[2024-04-02] MEDS ORDERED: ACETAMINOPHEN 650 MG SUPP R PRN (05:50)
[2024-04-02] MEDS ORDERED: Magnesium Hydroxide 30 ML UDC PO PRN (05:50)
[2024-04-02] MEDS ORDERED: BISACODYL 5 MG TAB PO PRN (05:50)
[2024-04-02] MEDS ORDERED: BISACODYL 10 MG SUPP R PRN (05:50)
[2024-04-02] MEDS ORDERED: ACETAMINOPHEN 325 MG TAB PO PRN (05:50)
[2024-04-02] MEDS ORDERED: Albuterol Sulf/Ipratropium 3 ML VIAL NEB SCH (06:00)
[2024-04-02] MEDS ORDERED: GUAIFENESIN 600 MG TAB ER PO SCH (10:00)
[2024-04-02] MEDS ORDERED: Enoxaparin Sodium 40 MG/0.4 ML SYR SC SCH (10:00)
[2024-04-02] MEDS ORDERED: methylPREDNISolone sod succ 40 MG VIAL IV SCH (10:00)
[2024-04-03] MEDS ORDERED: Ceftriaxone Sodium 1 GM in SYRINGE INFUSION 10 ML IV SCH ×2 (06:00→08:00)
[2024-04-03 06:41] LABS: HEMATOCRIT 29.1 % (42.0-52.0); MEAN CELL VOLUME 94.5 fl (80.0-94.0); MEAN CORPUSCULAR HGB 28.6 pg (27.0-31.0); MEAN CORPUSCULAR HGB CONC 30.2 g/dl (33.0-37.0); MEAN PLATELET VOLUME 9.5 fl (9.6-12.3); PLATELET COUNT AUTOMATED 255 10*3/uL (130-400); RED BLOOD COUNT 3.08 10*6/uL (4.50-5.90); RED CELL DISTRI WIDTH 14.7 % (0-14.5); WHITE BLOOD COUNT 7.9 10*3/uL (4.8-10.8)
[2024-04-03 06:48] LABS: MANUAL DIFF REFLEX YES
[2024-04-03 07:05] LABS: ALKALINE PHOSPHATASE 45 U/L (46-116); BUN 41 mg/dl (9-23); CHLORIDE 96 mmol/L (98-107); CHOLESTEROL 134 mg/dL (<200); LDL CHOLESTEROL 68 mg/dL (9-159); POTASSIUM 4.7 mmol/L (3.4-5.1); SGPT/ALT 17 U/L (5-49); TOTAL PROTEIN 6.8 gm/dL (6.0-8.0); TRIGLYCERIDES 71 mg/dl (<150)
[2024-04-03 07:21] LABS: POLYCHROMASIA SLIGHT; TOTAL CELLS COUNTED 100 #CELLS
[2024-04-03 07:22] LABS: OVALOCYTES FEW; PLATELET SUFFICIENCY NORMAL (NORMAL)
[2024-04-03 07:27] LABS: VITAMIN D, 25-HYDROXY 43.4 ng/mL (30-100)
[2024-04-03 08:00] VITALS: BP 144/65
[2024-04-03] MEDS ORDERED: AZITHROMYCIN 250 MG TAB PO SCH (10:00)
[2024-04-03] MEDS ORDERED: FUROSEMIDE 40 MG/4 ML VIAL IV ONE (11:45)
[2024-04-03 12:00] VITALS: BP 110/55
[2024-04-03 16:00] VITALS: BP 123/54
[2024-04-03 20:00] VITALS: BP 121/70
[2024-04-03] MEDS ORDERED: Albuterol Sulf/Ipratropium 3 ML VIAL NEB ONE (23:52)
[2024-04-04] VITALS: BP 120/57
[2024-04-04 06:41] LABS: BUN 48 mg/dl (9-23); CHLORIDE 96 mmol/L (98-107)
[2024-04-04 08:00] VITALS: BP 112/62
[2024-04-04] MEDS ORDERED: Tamsulosin Hydrochloride 0.4 MG CAP PO SCH (10:00)
[2024-04-04] MEDS ORDERED: Albuterol Sulfate 2.5 MG/3 ML VIAL NEB SCH (11:10)
[2024-04-04 12:00] VITALS: BP 120/64
[2024-04-04 12:13] LABS: ABG O2 SATURATION 97.2 % (94.0-98.0); ARTERIAL BLOOD GAS PH 7.426 (7.350-7.450); ARTERIAL BLOOD GAS PO2 90.2 mmHg (83.0-108.0)
[2024-04-04 12:14] LABS: ABG BASE EXCESS 8.4 mmol/L (-2.0-3.0)
[2024-04-04 16:00] VITALS: BP 134/58
[2024-04-04] MEDS ORDERED: FUROSEMIDE 20 MG/2 ML VIAL IV ONE (16:15)
[2024-04-04 20:00] VITALS: BP 137/61
[2024-04-05] VITALS: BP 135/58
[2024-04-05 05:19] LABS: BUN 49 mg/dl (9-23); CHLORIDE 95 mmol/L (98-107); POTASSIUM 5.3 mmol/L (3.4-5.1)
[2024-04-05 08:00] VITALS: BP 121/52
[2024-04-05] MEDS ORDERED: FUROSEMIDE 20 MG/2 ML VIAL IV ONE (09:45)
[2024-04-05 12:00] VITALS: BP 115/41
[2024-04-05 16:00] VITALS: BP 107/43
[2024-04-05 20:00] VITALS: BP 125/43
[2024-04-06] VITALS: BP 133/46
[2024-04-06 07:11] LABS: BUN 48 mg/dl (9-23); CHLORIDE 96 mmol/L (98-107); POTASSIUM 5.2 mmol/L (3.4-5.1)
[2024-04-06 08:00] VITALS: BP 130/45
[2024-04-06] MEDS ORDERED: FUROSEMIDE 20 MG/2 ML VIAL IV ONE (09:30)
[2024-04-06 12:00] VITALS: BP 123/47
[2024-04-06 16:00] VITALS: BP 126/97
[2024-04-06 20:00] VITALS: BP 108/59
[2024-04-07] VITALS: BP 126/45
[2024-04-07 08:00] VITALS: BP 118/66
[2024-04-07] MEDS ORDERED: methylPREDNISolone sod succ 40 MG VIAL IV SCH (10:00)
[2024-04-07 12:00] VITALS: BP 118/60
[2024-04-07 16:00] VITALS: BP 136/50
[2024-04-07] MEDS ORDERED: FUROSEMIDE 20 MG/2 ML VIAL IV ONE (17:25)
[2024-04-07 18:01] LABS: BUN 47 mg/dl (9-23); CHLORIDE 95 mmol/L (98-107); POTASSIUM 5.4 mmol/L (3.4-5.1)
[2024-04-07 20:00] VITALS: BP 133/60
[2024-04-08] VITALS: BP 130/64
[2024-04-08 06:47] LABS: BUN 46 mg/dl (9-23); CHLORIDE 97 mmol/L (98-107); POTASSIUM 4.8 mmol/L (3.4-5.1)
[2024-04-08 08:00] VITALS: BP 117/57
[2024-04-08 12:00] VITALS: BP 122/62
[2024-04-08 16:00] VITALS: BP 119/52
[2024-04-08] MEDS ORDERED: FUROSEMIDE 40 MG TAB PO SCH (18:00)
[2024-04-08 20:00] VITALS: BP 134/52
[2024-04-09] VITALS: BP 126/49
[2024-04-09 06:22] LABS: BUN 45 mg/dl (9-23); CHLORIDE 96 mmol/L (98-107); POTASSIUM 4.7 mmol/L (3.4-5.1)
[2024-04-09 06:31] LABS: BASO % 0.1 % (0.0-1.0); EOS # 0.1 10*3/uL (0.0-0.4); EOS % 0.8 % (1.0-4.0); HEMATOCRIT 30.6 % (42.0-52.0); MEAN CELL VOLUME 90.3 fl (80.0-94.0); MEAN CORPUSCULAR HGB 28.3 pg (27.0-31.0); MEAN CORPUSCULAR HGB CONC 31.4 g/dl (33.0-37.0); MEAN PLATELET VOLUME 9.6 fl (9.6-12.3); MONO # 0.7 10*3/uL (0.1-1.0); MONO % 6.3 % (3.0-9.0); NEUT # 8.4 10*3/uL (2.3-7.9); NEUT % 76.4 % (47.0-73.0); PLATELET COUNT AUTOMATED 271 10*3/uL (130-400); RED BLOOD COUNT 3.39 10*6/uL (4.50-5.90); RED CELL DISTRI WIDTH 15.8 % (0-14.5); WHITE BLOOD COUNT 10.9 10*3/uL (4.8-10.8)
[2024-04-09 08:00] VITALS: BP 134/46
[2024-04-09 12:00] VITALS: BP 135/47
[2024-04-09 16:00] VITALS: BP 134/48
[2024-04-09 20:00] VITALS: BP 120/46
[2024-04-10] VITALS: BP 134/64
[2024-04-10 06:34] LABS: BASO % 0.1 % (0.0-1.0); EOS # 0.1 10*3/uL (0.0-0.4); HEMATOCRIT 31.7 % (42.0-52.0); MEAN CELL VOLUME 92.2 fl (80.0-94.0); MEAN CORPUSCULAR HGB 27.9 pg (27.0-31.0); MEAN CORPUSCULAR HGB CONC 30.3 g/dl (33.0-37.0); MEAN PLATELET VOLUME 9.5 fl (9.6-12.3); MONO # 0.7 10*3/uL (0.1-1.0); MONO % 6.9 % (3.0-9.0); NEUT # 7.4 10*3/uL (2.3-7.9); NEUT % 73.8 % (47.0-73.0); PLATELET COUNT AUTOMATED 270 10*3/uL (130-400); RED BLOOD COUNT 3.44 10*6/uL (4.50-5.90); RED CELL DISTRI WIDTH 15.9 % (0-14.5)
[2024-04-10 06:58] LABS: BUN 48 mg/dl (9-23); CHLORIDE 93 mmol/L (98-107); POTASSIUM 4.6 mmol/L (3.4-5.1)
[2024-04-10 08:00] VITALS: BP 138/68
[2024-04-10 12:00] VITALS: BP 119/37
[2024-04-10 16:00] VITALS: BP 127/61
[2024-04-10 20:00] VITALS: BP 116/51
[2024-04-11] VITALS: BP 124/51
[2024-04-11 07:24] LABS: BUN 44 mg/dl (9-23); CHLORIDE 92 mmol/L (98-107); POTASSIUM 4.2 mmol/L (3.4-5.1)
[2024-04-11 08:00] VITALS: BP 99/52
[2024-04-11 12:00] VITALS: BP 117/54
[2024-04-11 16:00] VITALS: BP 132/64
[2024-04-11 20:00] VITALS: BP 129/71
[2024-04-12] VITALS: BP 122/44
[2024-04-12 08:00] VITALS: BP 126/56
[2024-04-12 12:00] VITALS: BP 122/50
[2024-04-12 16:00] VITALS: BP 123/54
[2024-04-12 20:00] VITALS: BP 130/56
[2024-04-13] VITALS: BP 132/55
[2024-04-13 06:28] LABS: BASO % 0.1 % (0.0-1.0); EOS # 0.1 10*3/uL (0.0-0.4); EOS % 1.2 % (1.0-4.0); HEMATOCRIT 31.4 % (42.0-52.0); MEAN CELL VOLUME 90.5 fl (80.0-94.0); MEAN CORPUSCULAR HGB 28.8 pg (27.0-31.0); MEAN CORPUSCULAR HGB CONC 31.8 g/dl (33.0-37.0); MEAN PLATELET VOLUME 9.4 fl (9.6-12.3); MONO # 0.7 10*3/uL (0.1-1.0); MONO % 6.8 % (3.0-9.0); NEUT # 7.5 10*3/uL (2.3-7.9); NEUT % 72.5 % (47.0-73.0); PLATELET COUNT AUTOMATED 247 10*3/uL (130-400); RED BLOOD COUNT 3.47 10*6/uL (4.50-5.90); RED CELL DISTRI WIDTH 16.1 % (0-14.5); WHITE BLOOD COUNT 10.3 10*3/uL (4.8-10.8)
[2024-04-13 06:49] LABS: BUN 47 mg/dl (9-23); CHLORIDE 93 mmol/L (98-107); POTASSIUM 3.7 mmol/L (3.4-5.1)
[2024-04-13 08:00] VITALS: BP 148/53
[2024-04-13] MEDS ORDERED: PREDNISONE10 MG PO (11:52)
[2024-04-13] MEDS ORDERED: LASIX40 MG PO (11:52)
[2024-04-13 12:00] VITALS: BP 141/59
== END 2024-04-13 13:50 | disposition home health service (06) | DRG 177 ==
LOC: ED 01:28 → 4E 05:02 → EDHOLD 05:02 → 4E 22:51
PROVIDERS: Emergency Medicine; Internal Medicine; Internal Medicine Critical Care Medicine; Occupational Therapist; Student in an Organized Health Care Education/Training Program; ADMIT Student in an Organized Health Care Education/Training Program; ATTEND Student in an Organized Health Care Education/Training Program
PROC: 5A09357 Assistance with Respiratory Ventilation, Less than 24 Consecutive Hours, Continuous Positive Airway Pressure (ICD-10-PCS; principal; 2024-04-02)
PROC: 5A09357 Assistance with Respiratory Ventilation, Less than 24 Consecutive Hours, Continuous Positive Airway Pressure (ICD-10-PCS; 2024-04-03)
PROC: 5A09357 Assistance with Respiratory Ventilation, Less than 24 Consecutive Hours, Continuous Positive Airway Pressure (ICD-10-PCS; 2024-04-04)
PROC: 5A09357 Assistance with Respiratory Ventilation, Less than 24 Consecutive Hours, Continuous Positive Airway Pressure (ICD-10-PCS; 2024-04-05)
PROC: 5A09357 Assistance with Respiratory Ventilation, Less than 24 Consecutive Hours, Continuous Positive Airway Pressure (ICD-10-PCS; 2024-04-06)
PROC: 5A09357 Assistance with Respiratory Ventilation, Less than 24 Consecutive Hours, Continuous Positive Airway Pressure (ICD-10-PCS; 2024-04-07)
PROC: 5A09357 Assistance with Respiratory Ventilation, Less than 24 Consecutive Hours, Continuous Positive Airway Pressure (ICD-10-PCS; 2024-04-08)
PROC: 5A09357 Assistance with Respiratory Ventilation, Less than 24 Consecutive Hours, Continuous Positive Airway Pressure (ICD-10-PCS; 2024-04-10)
PROC: 5A09357 Assistance with Respiratory Ventilation, Less than 24 Consecutive Hours, Continuous Positive Airway Pressure (ICD-10-PCS; 2024-04-11)
PROC: 5A09357 Assistance with Respiratory Ventilation, Less than 24 Consecutive Hours, Continuous Positive Airway Pressure (ICD-10-PCS; 2024-04-12)
PROC: 5A09357 Assistance with Respiratory Ventilation, Less than 24 Consecutive Hours, Continuous Positive Airway Pressure (ICD-10-PCS; 2024-04-13)
DX: J15.69 Pneumonia due to other Gram-negative bacteria (principal); J96.21 Acute and chronic respiratory failure with hypoxia; N17.0 Acute kidney failure with tubular necrosis; J96.22 Acute and chronic respiratory failure with hypercapnia; J44.1 Chronic obstructive pulmonary disease with (acute) exacerbation; E87.1 Hypo-osmolality and hyponatremia; E87.3 Alkalosis; J44.0 Chronic obstructive pulmonary disease with (acute) lower respiratory infection; I50.32 Chronic diastolic (congestive) heart failure; Z68.42 Body mass index [BMI] 45.0-49.9, adult; E66.01 Morbid (severe) obesity due to excess calories; I27.81 Cor pulmonale (chronic); D64.9 Anemia, unspecified; E87.5 Hyperkalemia; I11.0 Hypertensive heart disease with heart failure; N40.0 Benign prostatic hyperplasia without lower urinary tract symptoms; R53.81 Other malaise; G47.33 Obstructive sleep apnea (adult) (pediatric); Z99.81 Dependence on supplemental oxygen; Z87.891 Personal history of nicotine dependence; Z88.2 Allergy status to sulfonamides; Z79.899 Other long term (current) drug therapy; Z82.5 Family history of asthma and other chronic lower respiratory diseases

== ENCOUNTER → 2024-08-29 | Outpatient (CLI) | payer OTHER ==
[~2024-08-29] MED LIST changes: +BREZTRI AEROS10.7 GM INH; +FLOMAX0.4 MG PO; +LASIX40 MG PO; +VITAMIN D350 MC2 PO
== END | disposition home or self-care (01) ==
LOC: CT 07-18 11:00
PROVIDERS: ATTEND Internal Medicine Critical Care Medicine
DX: Z12.2 Encounter for screening for malignant neoplasm of respiratory organs (principal); J43.9 Emphysema, unspecified; J45.50 Severe persistent asthma, uncomplicated; J96.11 Chronic respiratory failure with hypoxia; J96.12 Chronic respiratory failure with hypercapnia; Z99.81 Dependence on supplemental oxygen; Z68.35 Body mass index [BMI] 35.0-35.9, adult; Z68.42 Body mass index [BMI] 45.0-49.9, adult; Z87.891 Personal history of nicotine dependence; I51.7 Cardiomegaly; I25.10 Atherosclerotic heart disease of native coronary artery without angina pectoris; N28.1 Cyst of kidney, acquired